=== PATIENT | female | born 1960 | race African-American/Black ===

== ENCOUNTER → 2017-06-18 | Outpatient (CLI) | payer BC, OTHER ==
[~2017-06-18] MED LIST: AMBIEN CR12.5 MG PO; AMLODIPINE BESYL5 MG PO; CIPRO250 MG PO; CIPROFLOXACIN500 MG PO; COMPAZINE10 M1 PO; CYCLOBENZAPRINE10 MG PO; CYMBALTA30 MG PO; DIPHENOX/ATROPI1 TAB PO; ESTRACE0.1 MG/GM; FLEXERIL5 MG PO; KLONOPIN1 MG PO; MOTRIN800 MG PO; Motrin,Rufen800 MG PO; NUCYNTA75 MG PO; OPANA ER10 MG PO; OPANA ER20 M1 PO; OPANA ER40 MG PO; OPANA10 MG PO; OXYCODONE15 MG PO; PERCOCET 325 MG1 TA2; TRAMADOL HCL50 MG PO; TRAZADONE HYDR100 MG PO; VALIUM10 MG PO; ZITHROMAX250 MG PO; ZOFRAN4 MG PO; ZYRTEC10 MG PO; [UNRECOGNIZED DRUG - OTHER] PO
== END | disposition home or self-care (01) ==
LOC: MAMMO 06-08 14:20
DX: Z12.31 Encounter for screening mammogram for malignant neoplasm of breast (principal); M89.9 Disorder of bone, unspecified

== ENCOUNTER → 2017-10-10 | Outpatient (CLI) | payer OTHER ==
[2017-10-10 08:47] LABS: BILIRUBIN NEGATIVE (NEGATIVE); BLOOD 2+ (NEGATIVE); CLARITY SL CLOUDY (CLEAR); COLOR YELLOW (YELLOW); GLUCOSE NEGATIVE (NEGATIVE); KETONE NEGATIVE (NEGATIVE); LEUKO ESTERASE TRACE (NEGATIVE); NITRITE NEGATIVE (NEGATIVE); PH 5.5 (5.0-9.0); SPECIFIC GRAVITY >= 1.030 (1.005-1.030); UROBILINOGEN 0.2 E.U./dl (0.2-1.0)
[2017-10-10 08:51] LABS: HEMATOCRIT 43.5 % (37.0-47.0); HEMOGLOBIN 14.1 g/dl (12.0-16.0); MEAN CORPUSCULAR HGB 28.8 pg (27.0-31.0); MEAN CORPUSCULAR HGB CONC 32.4 g/dl (33.0-37.0); MEAN PLATELET VOLUME 9.1 fl (9.6-12.3); RED BLOOD COUNT 4.89 10*6/uL (4.10-5.10); WHITE BLOOD COUNT 10.2 10*3/uL (4.8-10.8)
[2017-10-10 08:58] LABS: BACTERIA 1+; MUCOUS 2+; RBC 21-30 rbc/hpf (0-2)
[2017-10-10 09:16] LABS: ALBUMIN 4.1 gm/dl (3.1-4.5); ALKALINE PHOSPHATASE 94 U/L (45-117); BUN 9 mg/dl (7-24); CHLORIDE 104 mmol/L (98-107); CHOLESTEROL 216 mg/dL (<200); CREATININE 0.97 mg/dL (0.55-1.02); FREE T4 0.93 ng/dl (0.76-1.46); HDL CHOLESTEROL 39 mg/dl (40-60); LDL CHOLESTEROL 108 mg/dL (9-159); LIPASE 145 U/L (73-393); POTASSIUM 3.5 mmol/L (3.5-5.1); SGOT/AST 9 IU/L (3-35); SGPT/ALT 15 U/L (12-78); SODIUM 143 mmol/L (136-145); TOTAL PROTEIN 7.6 gm/dL (6.4-8.2); TRIGLYCERIDES 344 mg/dl (<150); VLDL CHOLESTEROL 69 mg/dL (6-40)
== END | disposition home or self-care (01) ==
LOC: LAB 08:14
PROVIDERS: Family Medicine
DX: D53.9 Nutritional anemia, unspecified (principal); I10 Essential (primary) hypertension; R53.81 Other malaise; R53.83 Other fatigue; R10.9 Unspecified abdominal pain; Z72.89 Other problems related to lifestyle

== ENCOUNTER 2017-11-21 14:09 | Emergency (ER) | payer BC, OTHER ==
[~2017-11-21] VITALS: Ht 170.1 cm; Wt 83.9 kg
[2017-11-21 14:13] VITALS: BP 132/72
== END 2017-11-21 15:54 | disposition home or self-care (01) ==
LOC: ED 14:09
DX: M75.22 Bicipital tendinitis, left shoulder (principal); M19.90 Unspecified osteoarthritis, unspecified site; G89.29 Other chronic pain; Z79.899 Other long term (current) drug therapy; Z88.5 Allergy status to narcotic agent; Z90.49 Acquired absence of other specified parts of digestive tract; Z98.890 Other specified postprocedural states; Z88.1 Allergy status to other antibiotic agents

== ENCOUNTER → 2019-01-05 | Day surgery (SDC) | payer BC ==
[~2019-01-05] VITALS: Ht 170.1 cm; Wt 72.6 kg
[~2019-01-05] MED LIST changes: +AMBIEN12.5 MG PO; +BENADRYL25 M2 PO; +DIAZEPAM10 M1 PO; +IBUPROFEN600 MG PO; +LEXAPRO10 MG PO; +NORCO 5-325 TA1 EACH PO; +OXYCODONE HCL80 MG PO; +PANTOPRAZOLE SO40 MG PO; +ZANTAC 150150 MG PO
--- NOTE | ~2019-01-05 | O ---
[place], [place] OPERATIVE NOTE [id number] UNIT #: [id number] ROOM: DOCTOR: FRANCES RODRIGEZ MD BIRTHDATE: [birth year] DOS: 01/05/2019 PREOPERATIVE DIAGNOSIS: Cataract, right eye. POSTOPERATIVE DIAGNOSIS: Cataract, right eye. OPERATION: Extracapsular cataract extraction by phacoemulsification with posterior chamber intraocular lens implantation, right eye. ANESTHESIA: Monitored standby. OPERATIVE FINDINGS AND PROCEDURE: 2% Xylocaine topical anesthetic gel was applied to the eye in the preop area. The patient was taken to the operating room and prepped and draped in the standard fashion for sterile intraocular surgery. A time out procedure was performed verifying correct patient, correct site and corrects lens with Yudy Rodrigez M.D. The operating microscope was swung into position and the lid speculum was inserted. Using a 15-degree angulated super blade, a paracentesis was made through clear cornea. Shugarcaine, a mixture of lidocaine and epinephrine, was injected into the anterior chamber. This was followed by the instillation of air and then Trypan Blue to stain the anterior capsule. Viscoelastic was then used to fill the anterior chamber. Viscoelastic was used to fill the anterior chamber. Using a metal keratome a 2.4 mm self-sealing clear corneal cataract incision was made temporally at the limbus. Using a pre-bent 25 gauge cystotome needle, a standard continuous curvilinear capsulorrhexis was performed. The anterior capsule was removed with forceps. The lens nucleus was hydrodissected and phacoemulsified in the posterior chamber. Cortical material was removed with the irrigation aspiration hand piece and the posterior capsule was then polished with a curet under irrigation. The posterior chamber and capsular bag were filled with viscoelastic. A posterior chamber intraocular lens manufactured by: [employer], Model #[id number], 18.5 diopters in strength were then inserted into the posterior chamber and within the capsular bag using the lens cartridge and injector system. Viscoelastic was removed using the irrigation aspiration handpiece. The anterior chamber was filled with balanced salt solution through the paracentesis. Both the paracentesis site and cataract incisions were hydrated with BSS and verified to be water-tight and self-sealing. Cefuroxime 1 mg/0.1 mL was injected into the anterior chamber through the paracentesis site. The incision checked to be water-tight using a Weck-Jessica sponge. The integrity of the cataract wound and ocular tension were checked. Lid speculum and drapes were removed. The patient was transferred from the operating room to the recovery room in satisfactory condition. [place], [place] OPERATIVE NOTE NAME: LEANNE NG UNIT #: [id number] ROOM: DOCTOR: FRANCES RODRIGEZ MD BIRTHDATE: [birth year] FRANCES RODRIGEZ MD CM:OPRECORD:OPERATIVE NOTE [id number] FRANCES RODRIGEZ MD 01/05/19 1213 interface
[2019-01-05 08:30] VITALS: BP 117/65
[2019-01-05 09:40] VITALS: BP 123/79
[2019-01-05 09:55] VITALS: BP 124/74
[2019-01-05 10:10] VITALS: BP 125/77
== END | disposition home or self-care (01) ==
LOC: SDC 12-30 09:30
DX: H25.811 Combined forms of age-related cataract, right eye (principal); I10 Essential (primary) hypertension; K21.9 Gastro-esophageal reflux disease without esophagitis; F41.9 Anxiety disorder, unspecified; F17.210 Nicotine dependence, cigarettes, uncomplicated; Z88.5 Allergy status to narcotic agent; Z88.8 Allergy status to other drugs, medicaments and biological substances; Z91.048 Other nonmedicinal substance allergy status; Z79.899 Other long term (current) drug therapy; Z87.01 Personal history of pneumonia (recurrent); Z90.49 Acquired absence of other specified parts of digestive tract; Z98.890 Other specified postprocedural states; Z82.49 Family history of ischemic heart disease and other diseases of the circulatory system

== ENCOUNTER → 2019-02-09 | Day surgery (SDC) | payer BC ==
[~2019-02-09] VITALS: Ht 170.1 cm; Wt 72.6 kg
--- NOTE | ~2019-02-09 | O ---
[place], [place] OPERATIVE NOTE [facility]: [id number] UNIT #: [id number] ROOM: DOCTOR: FRANCES RODRIGEZ MD BIRTHDATE: [birth year] DOS: 02/09/2019 PREOPERATIVE DIAGNOSIS: Cataract, left eye. POSTOPERATIVE DIAGNOSIS: Cataract, left eye. OPERATION: Extracapsular cataract extraction by phacoemulsification with posterior chamber intraocular lens implantation, left eye. ANESTHESIA: Monitored standby. OPERATIVE FINDINGS AND PROCEDURE: 2% Xylocaine topical anesthetic gel was applied to the eye in the preop area. The patient was taken to the operating room and prepped and draped in the standard fashion for sterile intraocular surgery. A time out procedure was performed verifying correct patient, correct site and corrects lens with Yudy Rodrigez M.D. The operating microscope was swung into position and the lid speculum was inserted. Using a Jaky paracentesis blade, a paracentesis was made through clear cornea. A mixture of preservative free lidocaine 4% and preservative-free epinephrine 1:1000 in balanced salt solution was injected into the anterior chamber. Viscoelastic was used to fill the anterior chamber. Using a metal keratome a 2.4 mm self-sealing clear corneal cataract incision was made temporally at the limbus. Using a pre-bent 25 gauge cystotome needle, a standard continuous curvilinear capsulorrhexis was performed. The anterior capsule was removed with forceps. The lens nucleus was hydrodissected and phacoemulsified in the posterior chamber. Cortical material was removed with the irrigation aspiration hand piece and the posterior capsule was then polished with a curet under irrigation. The posterior chamber and capsular bag were filled with viscoelastic. A posterior chamber intraocular lens manufactured by: [employer], Model #[id number] and 18.5 diopters in strength were then inserted into the posterior chamber and within the capsular bag using the lens cartridge and injector system. Viscoelastic was removed using the irrigation aspiration handpiece. The anterior chamber was filled with balanced salt solution through the paracentesis. Both the paracentesis site and cataract incisions were hydrated with BSS and verified to be water-tight and self-sealing. Cefuroxime 1 mg/0.1 mL was injected into the anterior chamber through the paracentesis site. The incision checked to be water-tight using a Weck-Jessica sponge. The integrity of the cataract wound and ocular tension were checked. Lid speculum and drapes were removed. The patient was transferred from the operating room to the recovery room in satisfactory condition. [place], [place] OPERATIVE NOTE NAME: LEANNE NG Cheri UNIT #: [id number] ROOM: DOCTOR: FRANCES RODRIGEZ MD BIRTHDATE: [birth year] FRANCES RODRIGEZ MD CM:OPRECORD:OPERATIVE NOTE [id number] FRANCES RODRIGEZ MD 02/09/19 1155 interface
[2019-02-09 08:29] VITALS: BP 118/72
[2019-02-09 09:43] VITALS: BP 128/83
[2019-02-09 09:58] VITALS: BP 115/82
[2019-02-09 10:13] VITALS: BP 118/78
== END | disposition home or self-care (01) ==
LOC: SDC 02-03 14:00
DX: H25.812 Combined forms of age-related cataract, left eye (principal); I10 Essential (primary) hypertension; J45.909 Unspecified asthma, uncomplicated; K21.9 Gastro-esophageal reflux disease without esophagitis; F41.9 Anxiety disorder, unspecified; F32.9 Major depressive disorder, single episode, unspecified; F17.210 Nicotine dependence, cigarettes, uncomplicated; Z88.5 Allergy status to narcotic agent; Z79.899 Other long term (current) drug therapy; Z98.890 Other specified postprocedural states; Z82.49 Family history of ischemic heart disease and other diseases of the circulatory system; Z80.9 Family history of malignant neoplasm, unspecified

== ENCOUNTER 2019-07-19 02:53 | Emergency (ER) | payer BC ==
[~2019-07-19] VITALS: Ht 170.1 cm; Wt 84.4 kg
[2019-07-19 03:00] VITALS: BP 138/90
== END 2019-07-19 04:04 | disposition home or self-care (01) ==
LOC: ED 02:53
DX: F41.0 Panic disorder [episodic paroxysmal anxiety] (principal); Z91.048 Other nonmedicinal substance allergy status; Z88.5 Allergy status to narcotic agent; Z88.8 Allergy status to other drugs, medicaments and biological substances; Z79.899 Other long term (current) drug therapy; G89.29 Other chronic pain; Z90.49 Acquired absence of other specified parts of digestive tract

== ENCOUNTER → 2019-12-09 | Outpatient (CLI) | payer BC | END | disposition home or self-care (01) | LOC: CT 12:48 | DX: R10.9 Unspecified abdominal pain (principal) ==

== ENCOUNTER → 2020-04-10 | Outpatient (CLI) | payer BC | END | disposition home or self-care (01) | LOC: MAMMO 16:22 | PROVIDERS: ATTEND Obstetrics & Gynecology | DX: Z12.31 Encounter for screening mammogram for malignant neoplasm of breast (principal) ==

== ENCOUNTER → 2020-06-05 | Outpatient (CLI) | payer BC | END | disposition home or self-care (01) | LOC: US 10:26 | PROVIDERS: ATTEND Family Medicine | DX: R59.9 Enlarged lymph nodes, unspecified (principal) ==

== ENCOUNTER → 2021-04-15 | Outpatient (CLI) | payer BC | END | disposition home or self-care (01) | LOC: US 15:24 | PROVIDERS: ATTEND Family Medicine | DX: M79.605 Pain in left leg (principal) ==

== ENCOUNTER → 2022-08-01 | Outpatient (CLI) | payer BC | END | disposition home or self-care (01) | LOC: US 12:48 | PROVIDERS: ATTEND Family Medicine | DX: E11.9 Type 2 diabetes mellitus without complications (principal); K76.89 Other specified diseases of liver; I10 Essential (primary) hypertension; E78.5 Hyperlipidemia, unspecified; Z90.49 Acquired absence of other specified parts of digestive tract ==

== ENCOUNTER → 2023-02-10 | Outpatient (CLI) | payer BC | END | disposition home or self-care (01) | LOC: MAMMO 01-19 13:00 | PROVIDERS: ATTEND Obstetrics & Gynecology | DX: Z12.31 Encounter for screening mammogram for malignant neoplasm of breast (principal); N63.22 Unspecified lump in the left breast, upper inner quadrant; N64.89 Other specified disorders of breast ==

== ENCOUNTER → 2025-01-02 | Outpatient (CLI) | payer BC | END | disposition home or self-care (01) | LOC: MAMMO 10:30 | PROVIDERS: ATTEND Obstetrics & Gynecology | DX: Z12.31 Encounter for screening mammogram for malignant neoplasm of breast (principal); R92.323 Mammographic fibroglandular density, bilateral breasts ==

== ENCOUNTER 2025-02-22 14:46 | Emergency (ER) | payer BC ==
[~2025-02-22] VITALS: Wt 74.8 kg
[2025-02-22 15:04] VITALS: BP 113/68
[2025-02-22] MEDS ORDERED: Acetaminophen/Oxycodone 5 MG/325 MG TABLET PO ONE (15:15)
[2025-02-22] MEDS ORDERED: MELOXICAM15 MG PO (15:33)
== END 2025-02-22 15:36 | disposition home or self-care (01) ==
LOC: ED 14:46
DX: S20.211A Contusion of right front wall of thorax, initial encounter (principal); I10 Essential (primary) hypertension; F41.9 Anxiety disorder, unspecified; Z90.49 Acquired absence of other specified parts of digestive tract; Z98.890 Other specified postprocedural states; Z88.5 Allergy status to narcotic agent; Z88.8 Allergy status to other drugs, medicaments and biological substances; X58.XXXA Exposure to other specified factors, initial encounter; Y93.I9 Activity, other involving external motion; Y92.89 Other specified places as the place of occurrence of the external cause; Y99.8 Other external cause status

== ENCOUNTER → 2025-05-29 | Outpatient (CLI) | payer BC ==
[~2025-05-29] MED LIST changes: +IOHEXOL 300 MG/ML 100 ML VIAL IV ONE; +IOHEXOL 300 MG/ML 100 ML VIAL ONE; +MELOXICAM15 MG PO
== END | disposition home or self-care (01) ==
LOC: CT 10:52
PROVIDERS: ATTEND Otolaryngology
DX: K11.20 Sialoadenitis, unspecified (principal); R59.0 Localized enlarged lymph nodes